=== PATIENT | female | born 1925 | race Caucasian/White ===

== ENCOUNTER → 2016-04-13 | Outpatient (CLI) | payer BC ==
[~2016-04-13] MED LIST: ACET-1256 PO; ASPI81TA28 GT; ATOR-22 GT; BISA10SU7 RE; CMD3 PO; CRS/10 PO; DOCUSATE LIQUID GT; FSMUNK; LIDOCAINE 2% TOP; LRT5 PO; METO25TA56 PO; MOME0.1O TOP; MOML GT; RBN1 GT; SENN-61 GT; SODIENE PR; WARF4TAB8 GT
--- NOTE | 2016-04-13 12:44 | MAMMOGRAPHY REPORT ---
BILATERAL DIGITAL SCREENING MAMMOGRAM WITH CAD: 04/13/2016 TECHNIQUE: Current study was also evaluated with a Computer Aided Detection (CAD) system. Bilatera l CC and MLO views were obtained. COMPARISON: Comparison is made to exam dated: 11/07/2009 mammogram - [facility]. BREAST COMPOSITION: There are scattered areas of fibroglandular density in both breasts. FINDINGS: No suspicious masses, calcifications, or areas of architectural distortion are noted in e ither breast. There has been no significant interval change compared to prior exams. Scattered bilat eral benign-appearing calcifications are not significantly changed. IMPRESSION: ACR BI-RADS CATEGORY 2: BENIGN There is no mammographic evidence of malignancy. A 1 year screening mammogram is recommended. The p atient will receive written notification of the results. Approximately 10% of breast cancers are not detected with mammography. A negative mammographic repor t should not delay biopsy if a clinically suggestive mass is present. Jojo White M.D. ah/:04/13/2016 12:05:45 Editor Index: Eleonora SALAZAR(Vonnie)(M), [facility] letter sent: Normal 1/2 BI-RADS Code: ACR BI-RADS Category 2: Benign
== END | disposition home or self-care (01) ==
LOC: C.MAMM 11:06
PROVIDERS: ATTEND Internal Medicine
DX: Z12.31 Encounter for screening mammogram for malignant neoplasm of breast (principal); R19.4 Change in bowel habit

== ENCOUNTER → 2016-04-13 | Outpatient (CLI) | payer BC | END | disposition home or self-care (01) | LOC: C.LABSPEC 14:31 | PROVIDERS: ATTEND Internal Medicine | DX: R19.4 Change in bowel habit (principal) ==

== ENCOUNTER → 2016-05-17 | Outpatient (CLI) | payer BC ==
[2016-05-17 18:46] LABS: BASO % 0.4 %; BASO ABS # 0.04 K/uL (0-0.2); COMPLETE YES; EOS % 2.1 %; HEMATOCRIT 43.6 % (37-47); IG% 0.2 %; LYMPH % 23.9 %; LYMPH ABS # 2.14 K/uL (1.2-3.4); MEAN CELL VOLUME 84.3 fL (80-100); MEAN CORPUSCULAR HEMOGLOBIN 27.9 pg (25-34); MEAN PLATELET VOLUME 10.9 fL (7.4-10.4); MONO % 6.7 %; NEUT % 66.7 %; PLATELET COUNT 268 K/uL (130-400); RED BLOOD COUNT 5.17 M/uL (4.2-5.4); WHITE BLOOD COUNT 8.95 K/uL (4.8-10.8)
== END | disposition home or self-care (01) ==
LOC: C.LABSPEC 17:48
PROVIDERS: ATTEND Internal Medicine
DX: M08.43 Pauciarticular juvenile rheumatoid arthritis, wrist (principal)

== ENCOUNTER → 2016-09-21 | Outpatient (CLI) | payer BC ==
[2016-09-21 17:47] LABS: BASO % 0.2 %; BASO ABS # 0.02 K/uL (0-0.2); COMPLETE YES; EOS % 0.2 %; HEMATOCRIT 46.9 % (37-47); IG% 0.3 %; LYMPH % 15.7 %; LYMPH ABS # 1.62 K/uL (1.2-3.4); MEAN CELL VOLUME 84.2 fL (80-100); MEAN CORPUSCULAR HEMOGLOBIN 27.5 pg (25-34); MEAN CORPUSCULAR HGB CONC 32.6 g/dl (32-36); MEAN PLATELET VOLUME 11.4 fL (7.4-10.4); NEUT % 80.6 %; PLATELET COUNT 290 K/uL (130-400); RED BLOOD COUNT 5.57 M/uL (4.2-5.4); WHITE BLOOD COUNT 10.32 K/uL (4.8-10.8)
[2016-09-21 17:53] LABS: ALT/SGPT 19 U/L (12-78); BLOOD UREA NITROGEN 25 mg/dl (7-18); BUN/CREATININE RATIO 22.9 (10-20); CALCIUM 9.1 mg/dl (8.5-10.1); CARBON DIOXIDE 27 mmol/L (21-32); CHLORIDE 104 mmol/L (98-107); GLUCOSE 138 mg/dl (70-99); POTASSIUM 3.7 mmol/L (3.5-5.1); SODIUM 139 mmol/L (136-145)
[2016-09-21 17:55] LABS: ALB/GLOB RATIO 1.1 (0.9-2); ALKALINE PHOSPHATASE 63 U/L (45-117); AST/SGOT 12 U/L (15-37)
== END | disposition home or self-care (01) ==
LOC: C.LABSPEC 16:51
PROVIDERS: ATTEND Internal Medicine
DX: E86.0 Dehydration (principal); R11.10 Vomiting, unspecified

== ENCOUNTER 2016-09-25 20:56 | Emergency (ER) | payer BC ==
[~2016-09-25] VITALS: Ht 157.5 cm; Wt 61.0 kg
[~2016-09-25 20:56] MED LIST changes: -ACET-1256 PO; -ASPI81TA28 GT; -ATOR-22 GT; -BISA10SU7 RE; -CRS/10 PO; -DOCUSATE LIQUID GT; -LIDOCAINE 2% TOP; -METO25TA56 PO; -MOME0.1O TOP; -MOML GT; -RBN1 GT; -SENN-61 GT; -SODIENE PR; -WARF4TAB8 GT
[2016-09-25 21:03] VITALS: TEMP 36.5; O2SAT 96; Ht 157.5 cm; Wt 61.0 kg
[2016-09-25] MEDS ORDERED: SODIUM CHLORIDE 0.9% 1000ML 1,000 ML IV SCH (21:07)
--- NOTE | 2016-09-25 21:18 | DIAGNOSTIC IMAGING REPORT ---
CT SCAN OF THE BRAIN WITHOUT IV CONTRAST CLINICAL HISTORY: Strokelike symptoms. COMPARISON STUDY: CT the brain dated 01/03/2011. TECHNIQUE: Unenhanced axial CT scan of the brain is performed from the vertex to the skull base. CT DOSE: 537.48 mGy.cm FINDINGS: Brain parenchyma: There are age-related involutional changes noting mild to moderate patchy subcortical and periventricular microangiopathic change. There is no hemorrhage, mass effect, or evidence of acute territorial ischemia by CT criteria. 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 Rossi-white matter is preserved. No extra-axial fluid collection is seen. Ventricles, sulci, cisterns: Prominent secondary to involutional change. Intracranial vasculature: There is atherosclerotic calcification of the cavernous carotid and vertebral arteries. Calvarium: Unremarkable. Sinuses and mastoids: The visualized paranasal sinuses are clear. The mastoid air cells are well pneumatized. Orbits: The bony orbits are grossly intact. IMPRESSION: There is no hemorrhage, mass effect, or evidence of acute territorial ischemia by CT criteria. Electronically signed by: Janes Turner M.D. 09/25/2016 9:17 PM Dictated Date/Time: 09/25/2016 9:15 PM
[2016-09-25] MEDS ORDERED: LABETALOL HCL IV 5 MG/ML 20ML IV STA ×2 (21:19→22:15)
[2016-09-25 21:24] LABS: BASO % 0.4 %; BASO ABS # 0.04 K/uL (0-0.2); COMPLETE YES; EOS % 1.5 %; HEMATOCRIT 46.8 % (37-47); IG% 0.2 %; LYMPH % 28.4 %; MEAN CELL VOLUME 84.6 fL (80-100); MEAN CORPUSCULAR HEMOGLOBIN 28.2 pg (25-34); MEAN CORPUSCULAR HGB CONC 33.3 g/dl (32-36); MONO % 4.7 %; NEUT % 64.8 %; PLATELET COUNT 262 K/uL (130-400); RED BLOOD COUNT 5.53 M/uL (4.2-5.4); WHITE BLOOD COUNT 9.85 K/uL (4.8-10.8)
[2016-09-25] MEDS ORDERED: CRS/10 PO (21:33)
[2016-09-25] MEDS ORDERED: MOME0.1O TOP (21:33)
[2016-09-25] MEDS ORDERED: METO25TA56 PO (21:33)
[2016-09-25] MEDS ORDERED: ONDANSETRON INJ 2 MG/ML 2 ML VIAL IV STA ×2 (21:34→22:14)
[2016-09-25] MEDS ORDERED: ONDANSETRON INJ 2 MG/ML 2 ML VIAL ONE (21:34)
[2016-09-25 21:39] LABS: ISTAT CREATININE 0.8 mg/dl (0.6-1.3); ISTAT HEMOGLOBIN 17.3 g/dl (12.0-16.0); ISTAT IONIZED CALCIUM 1.13 mmol/l (1.12-1.32)
[2016-09-25 21:40] LABS: BLOOD UREA NITROGEN 21 mg/dl (7-18); BUN/CREATININE RATIO 21.9 (10-20); CALCIUM 8.8 mg/dl (8.5-10.1); CARBON DIOXIDE 23 mmol/L (21-32); CHLORIDE 105 mmol/L (98-107); CREATININE 0.97 mg/dl (0.60-1.20); GLUCOSE 163 mg/dl (70-99); POTASSIUM 3.4 mmol/L (3.5-5.1); SODIUM 138 mmol/L (136-145)
[2016-09-25 21:45] LABS: URINE APPEARANCE CLEAR (CLEAR); URINE BILIRUBIN NEG (NEG); URINE COLOR YELLOW; URINE EPITHELIAL CELL AUTO 0-5 /lpf (0-5); URINE NITRITE NEG (NEG); URINE PH 7.5 (4.5-7.5); URINE SPECIFIC GRAVITY 1.012 (1.000-1.030); UROBILINOGEN NEG (NEG); ZZURINE CULT IF INDIC CATH NO
[2016-09-25 21:45] LABS: CKMB/CK RATIO 3.6 (0-3.0)
[2016-09-25 21:48] LABS: PARTIAL THROMBOPLASTIN RATIO 1.1; PROTHROMBIN TIME (PATIENT) 10.3 SECONDS (9.0-12.0)
[2016-09-25 22:06] LABS: MANUAL MICROSCOPIC REQUIRED? NO; REVIEW REQ? NO
[2016-09-25 22:07] LABS: SULFASALICYLIC ACID POS (NEG)
[2016-09-25] MEDS ORDERED: OPTIRAY 320 IV PRN (22:30)
[2016-09-25] MEDS ORDERED: METOCLOPRAMIDE HCL INJ 5 MG/ML 2 ML VIAL IV STA (23:00)
[2016-09-25] MEDS ORDERED: NiCARDipine IV 25 MG in SODIUM CHLORIDE 0.9% 250ML 240 ML IV STA (23:03)
--- NOTE | 2016-09-25 23:19 | DIAGNOSTIC IMAGING REPORT ---
CT ANGIOGRAM OF THE BRAIN; CT ANGIOGRAM OF THE NECK CLINICAL HISTORY: Strokelike symptoms. COMPARISON STUDY: Unenhanced CT of the brain performed the same day 09/25/2016. TECHNIQUE: Following the IV administration of 115 of Optiray 320, CT angiogram of the head and neck was performed from the aortic arch to the vertex. Images are reviewed in the axial, sagittal, and coronal planes. 3-D MIPS images are created and assessed. IV contrast was administered without complication. All measurements were calculated based on NASCET criteria. CT DOSE: 408.36 mGy.cm FINDINGS: Brain parenchyma: There are age-related involutional changes noting mild to moderate patchy subcortical and periventricular microangiopathic disease. There is no hemorrhage, mass effect, or evidence of acute territorial ischemia by CT criteria. There is no evidence of enhancing mass lesion on these angiogram phase images. The ventricles, sulci, and cisterns are prominent secondary to involutional change. Rossi-white matter differentiation is preserved. No extra-axial fluid collection is seen. Thoracic aorta: There is mild atherosclerotic calcification of the partially imaged thoracic aorta. The aortic arch demonstrates standard 3-vessel anatomy. Right carotid arterial system: The right common carotid artery is widely patent. There is less than 50% narrowing at the origin of the right internal carotid artery. The remainder of the right internal carotid artery as well as the external carotid artery are widely patent. Atherosclerotic calcification is noted in the carotid bulb. Left carotid arterial system: The left common carotid artery is widely patent, as is the left external carotid artery. There is approximately 50% stenosis of the origin of the left internal carotid artery seen on axial image #177. The remainder of the internal carotid artery is widely patent. Atherosclerotic plaque is noted in the carotid bulb. Vertebral arteries: The vertebral arteries are codominant. The right vertebral artery is widely patent. 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 The proximal left vertebral artery is widely patent. There is diminished flow seen within the mid to distal portions Subclavian arteries: Widely patent bilaterally. Intracranial vasculature: The internal carotid arteries are patent at the skull base, as are the anterior and middle cerebral arteries bilaterally. The right vertebral artery and the basilar artery are widely patent, as are the posterior cerebral arteries. 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 The cerebellar vessels appear patent. There is no aneurysm or high-grade stenosis identified throughout the remainder of the intracranial circulation. Jugular veins: Widely patent bilaterally. Dural sinuses: Patent. Lung apices: Intralobular septal thickening is seen at the lung apices. Partially visualized upper lobe lung parenchyma is otherwise clear. Soft tissues: The visualized pharyngeal soft tissues are normal in appearance noting angiographic phase technique. The oropharyngeal airway appears widely patent. The salivary and thyroid glands are normal in appearance. No cervical lymphadenopathy is seen. Skeletal structures: The skeletal structures are osteopenic. The calvarium appears intact. The cervical spine appears maintained noting multilevel spondylosis. Large periapical lucencies are identified involving several mandibular teeth. Orbits: The bony orbits are intact. Orbital contents are normal as imaged noting bilateral ocular lens implants. Sinuses and mastoids: Trace mucosal thickening is seen within the maxillary antra. The remaining paranasal sinuses are clear. The mastoid air cells are well pneumatized. IMPRESSION: 1. There is no hemorrhage, mass effect, or evidence of acute territorial ischemia by CT criteria. 2. 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 The right vertebral artery and the basilar artery are widely patent. 3. The remaining intracranial vessels are patent. No aneurysm or focal vessel cut off is seen throughout the remainder of the intracranial circulation. 4. There is less than 50% narrowing at the origin of the right internal carotid artery. The remainder of the right carotid arterial system is widely patent. 5. There is approximately 50% stenosis in the proximal left internal carotid artery. The remainder of the left carotid arterial system is widely patent. 6. Intralobular septal thickening is present in the upper lobes. This suggests congestive failure. Clinical correlation will be required. 7. Large periapical lucencies are identified involving several mandibular teeth. Follow-up with dentistry is recommended when the patient is clinically able. Electronically signed by: Janes Turner M.D. 09/25/2016 11:18 PM Dictated Date/Time: 09/25/2016 10:58 PM
--- NOTE | 2016-09-25 23:21 | DIAGNOSTIC IMAGING REPORT ---
SINGLE VIEW CHEST CLINICAL HISTORY: Strokelike symptoms. Hypoxia. Cough. FINDINGS: An AP, portable, upright chest radiograph is compared to study dated 01/09/2011. The examination is degraded by portable technique and patient rotation. The patient is status post midline sternotomy. The heart is enlarged and there is atherosclerotic calcification of the thoracic aorta. There is pulmonary vessel congestion with mild interstitial edema. No large pleural effusion is identified. There is no airspace consolidation typical for pneumonia. No pneumothorax is seen. The skeletal structures are osteopenic. The bony thorax is grossly intact. IMPRESSION: 1. Cardiomegaly with evidence of congestive failure and mild interstitial edema. 2. No focal airspace consolidation or large pleural effusion is identified. Electronically signed by: Janes Turner M.D. 09/25/2016 11:19 PM Dictated Date/Time: 09/25/2016 11:18 PM
[2016-09-26 00:15] VITALS: PULSE 88; O2SAT 98
[2016-09-26] MEDS ORDERED: HEPARIN IV LOW DOSE NO BOLUS STA (01:54)
[2016-09-26] MEDS ORDERED: HEPARIN 25000 UNIT/500 ML D5W ONE (02:00)
--- NOTE | 2016-09-26 03:32 | EMERGENCY ROOM VISIT NOTE ---
History Report prepared by Godwin: Trudy Vital Under the Supervision of: Dr. Jan Wolfe M.D. First contact with patient: 20:58 Stated Complaint: STROKE ALERT History of Present Illness The patient is an 89 year old female who presents to the Emergency Room with complaints of persistent stroke symptoms that began around 1800 this evening. She currently rates her discomfort as a 10/10 in severity. The patient reports that she has been experiencing a left-sided headache and facial pain. EMS reports that the patient has been experiencing left sided weakness. EMS notes that the patient cannot sit up and falls to the left side. EMS notes that the patient's stated that the patient is typically much quicker to respond. She was given aspirin at home. The patient denies any chest pain or breathing difficulty. She does have some mild nausea. She denies any right- sided weakness. No trauma reported. The history is somewhat limited secondary to the patient's medical acuity and neurologic issues. Source of History: patient, EMS Onset: 1800 Position: other (global) Symptom Intensity: 10/10 Quality: other (stroke symptoms) Timing: other (persistent) Associated Symptoms: + headache, + weakness (left leg, left arm) Note: Associated Symptoms: left facial droop. Review of Systems See HPI for pertinent positives and negatives. A total of ten systems were reviewed and were otherwise negative. 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 Social History Smokeless Tobacco Use: No Alcohol Use: occasionally Marital Status: Housing Status: lives with significant other Current/Historical Medications Scheduled Aspirin (Aspirin Ec), 81 MG PO DAILY Metoprolol Tartrate (Lopressor) (Lopressor), 25 MG PO DAILY Mometasone Furoate (Elocon), 1 APPLN TOP DAILY Rosuvastatin Calcium (Crestor), 10 MG PO DAILY Allergies Coded Allergies: Simvastatin (Verified Allergy, Mild, RASH, 01/03/11) Physical Exam Vital Signs Date Time Temp Pulse Resp B/P (MAP) Pulse Ox O2 Delivery O2 Flow Rate FiO2 09/26/16 02:56 81 16 135/65 96 BiPAP 40 09/26/16 01:30 88 20 142/75 96 BiPAP 40 09/26/16 01:16 89 09/26/16 00:49 89 20 157/85 96 BiPAP 40 09/26/16 00:26 87 16 148/82 98 BiPAP 40 09/26/16 00:15 88 98 40 09/26/16 00:02 91 20 138/84 97 Mask 6.0 09/25/16 23:48 84 20 140/91 99 Mask 10.0 09/25/16 23:38 78 22 188/103 93 Mask 15.0 09/25/16 22:56 81 22 192/96 91 Mask 10.0 09/25/16 22:16 205/115 09/25/16 22:12 68 20 92 Mask 6.0 09/25/16 22:03 69 20 201/120 90 Nasal Cannula 4.0 09/25/16 22:02 201/120 09/25/16 21:57 69 14 88 09/25/16 21:48 140/115 09/25/16 21:42 78 14 09/25/16 21:37 76 18 217/115 92 Nasal Cannula 2.0 09/25/16 21:31 80 16 197/90 92 Nasal Cannula 2.0 09/25/16 21:26 80 16 97 Nasal Cannula 2.0 09/25/16 21:19 80 09/25/16 21:17 76 18 214/105 93 Nasal Cannula 2.0 09/25/16 21:03 36.5 83 18 223/127 97 Nasal Cannula 2.0 09/25/16 21:03 96 Nasal Cannula 2.0 Physical Exam GENERAL: Awake, alert, well-appearing, in no distress HENT: Normocephalic, atraumatic. Oropharynx unremarkable. EYES: Normal conjunctiva. Sclera non-icteric. PERRLA. EOMI however moderate nystagmus noted laterally. NECK: Supple. No nuchal rigidity. FROM. No JVD. RESPIRATORY: Clear to auscultation. CARDIAC: Regular rate, normal rhythm. Extremities warm and well perfused. Pulses equal. ABDOMEN: Soft, non-distended. No tenderness to palpation. No rebound or guarding. No masses. RECTAL: Deferred. MUSCULOSKELETAL: Chest examination reveals no tenderness. The back is symmetrical on inspection without obvious abnormality. There is no CVA tenderness to palpation. No joint edema. LOWER EXTREMITIES: Calves are equal size bilaterally and non-tender. No edema. No discoloration. NEURO: Normal sensorium. Left arm 4.5 out of 5 and left leg 4 out of 5 weakness. Left facial droop. Slow to answer questions, speech is somewhat slurred. No pronator drift. SKIN: No rash or jaundice noted. Medical Decision & Procedures ER Provider Diagnostic Interpretation: Radiology results as stated below per my review and radiologist interpretation: CT SCAN OF THE BRAIN WITHOUT IV CONTRAST CLINICAL HISTORY: Strokelike symptoms. COMPARISON STUDY: CT the brain dated 01/03/2011. TECHNIQUE: Unenhanced axial CT scan of the brain is performed from the vertex to the skull base. CT DOSE: 537.48 mGy.cm FINDINGS: Brain parenchyma: There are age-related involutional changes noting mild to moderate patchy subcortical and periventricular microangiopathic change. There is no hemorrhage, mass effect, or evidence of acute territorial ischemia by CT criteria. 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 Rossi-white matter is preserved. No extra-axial fluid collection is seen. Ventricles, sulci, cisterns: Prominent secondary to involutional change. Intracranial vasculature: There is atherosclerotic calcification of the cavernous carotid and vertebral arteries. Calvarium: Unremarkable. Sinuses and mastoids: The visualized paranasal sinuses are clear. The mastoid air cells are well pneumatized. Orbits: The bony orbits are grossly intact. IMPRESSION: There is no hemorrhage, mass effect, or evidence of acute territorial ischemia by CT criteria. Electronically signed by: Janes Turner M.D. 09/25/2016 9:17 PM Dictated Date/Time: 09/25/2016 9:[address] ANGIOGRAM OF THE BRAIN; CT ANGIOGRAM OF THE NECK CLINICAL HISTORY: Strokelike symptoms. COMPARISON STUDY: Unenhanced CT of the brain performed the same day 09/25/2016. TECHNIQUE: Following the IV administration of 115 of Optiray 320, CT angiogram of the head and neck was performed from the aortic arch to the vertex. Images are reviewed in the axial, sagittal, and coronal planes. 3-D MIPS images are created and assessed. IV contrast was administered without complication. All measurements were calculated based on NASCET criteria. CT DOSE: 408.36 mGy.cm FINDINGS: Brain parenchyma: There are age-related involutional changes noting mild to moderate patchy subcortical and periventricular microangiopathic disease. There is no hemorrhage, mass effect, or evidence of acute territorial ischemia by CT criteria. There is no evidence of enhancing mass lesion on these angiogram phase images. The ventricles, sulci, and cisterns are prominent secondary to involutional change. Rossi-white matter differentiation is preserved. No extra-axial fluid collection is seen. Thoracic aorta: There is mild atherosclerotic calcification of the partially imaged thoracic aorta. The aortic arch demonstrates standard 3-vessel anatomy. Right carotid arterial system: The right common carotid artery is widely patent. There is less than 50% narrowing at the origin of the right internal carotid artery. The remainder of the right internal carotid artery as well as the external carotid artery are widely patent. Atherosclerotic calcification is noted in the carotid bulb. Left carotid arterial system: The left common carotid artery is widely patent, as is the left external carotid artery. There is approximately 50% stenosis of the origin of the left internal carotid artery seen on axial image #177. The remainder of the internal carotid artery is widely patent. Atherosclerotic plaque is noted in the carotid bulb. Vertebral arteries: The vertebral arteries are codominant. The right vertebral artery is widely patent. 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 The proximal left vertebral artery is widely patent. There is diminished flow seen within the mid to distal portions Subclavian arteries: Widely patent bilaterally. Intracranial vasculature: The internal carotid arteries are patent at the skull base, as are the anterior and middle cerebral arteries bilaterally. The right vertebral artery and the basilar artery are widely patent, as are the posterior cerebral arteries. 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 The cerebellar vessels appear patent. There is no aneurysm or high-grade stenosis identified throughout the remainder of the intracranial circulation. Jugular veins: Widely patent bilaterally. Dural sinuses: Patent. Lung apices: Intralobular septal thickening is seen at the lung apices. Partially visualized upper lobe lung parenchyma is otherwise clear. Soft tissues: The visualized pharyngeal soft tissues are normal in appearance noting angiographic phase technique. The oropharyngeal airway appears widely patent. The salivary and thyroid glands are normal in appearance. No cervical lymphadenopathy is seen. Skeletal structures: The skeletal structures are osteopenic. The calvarium appears intact. The cervical spine appears maintained noting multilevel spondylosis. Large periapical lucencies are identified involving several mandibular teeth. Orbits: The bony orbits are intact. Orbital contents are normal as imaged noting bilateral ocular lens implants. Sinuses and mastoids: Trace mucosal thickening is seen within the maxillary antra. The remaining paranasal sinuses are clear. The mastoid air cells are well pneumatized. IMPRESSION: 1. There is no hemorrhage, mass effect, or evidence of acute territorial ischemia by CT criteria. 2. 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 The right vertebral artery and the basilar artery are widely patent. 3. The remaining intracranial vessels are patent. No aneurysm or focal vessel cut off is seen throughout the remainder of the intracranial circulation. 4. There is less than 50% narrowing at the origin of the right internal carotid artery. The remainder of the right carotid arterial system is widely patent. 5. There is approximately 50% stenosis in the proximal left internal carotid artery. The remainder of the left carotid arterial system is widely patent. 6. Intralobular septal thickening is present in the upper lobes. This suggests congestive failure. Clinical correlation will be required. 7. Large periapical lucencies are identified involving several mandibular teeth. Follow-up with dentistry is recommended when the patient is clinically able. Electronically signed by: Janes Turner M.D. 09/25/2016 11:18 PM Dictated Date/Time: 09/25/2016 10:[address] ANGIOGRAM OF THE BRAIN; CT ANGIOGRAM OF THE NECK CLINICAL HISTORY: Strokelike symptoms. COMPARISON STUDY: Unenhanced CT of the brain performed the same day 09/25/2016. TECHNIQUE: Following the IV administration of 115 of Optiray 320, CT angiogram of the head and neck was performed from the aortic arch to the vertex. Images are reviewed in the axial, sagittal, and coronal planes. 3-D MIPS images are created and assessed. IV contrast was administered without complication. All measurements were calculated based on NASCET criteria. CT DOSE: 408.36 mGy.cm FINDINGS: Brain parenchyma: There are age-related involutional changes noting mild to moderate patchy subcortical and periventricular microangiopathic disease. There is no hemorrhage, mass effect, or evidence of acute territorial ischemia by CT criteria. There is no evidence of enhancing mass lesion on these angiogram phase images. The ventricles, sulci, and cisterns are prominent secondary to involutional change. Rossi-white matter differentiation is preserved. No extra-axial fluid collection is seen. Thoracic aorta: There is mild atherosclerotic calcification of the partially imaged thoracic aorta. The aortic arch demonstrates standard 3-vessel anatomy. Right carotid arterial system: The right common carotid artery is widely patent. There is less than 50% narrowing at the origin of the right internal carotid artery. The remainder of the right internal carotid artery as well as the external carotid artery are widely patent. Atherosclerotic calcification is noted in the carotid bulb. Left carotid arterial system: The left common carotid artery is widely patent, as is the left external carotid artery. There is approximately 50% stenosis of the origin of the left internal carotid artery seen on axial image #177. The remainder of the internal carotid artery is widely patent. Atherosclerotic plaque is noted in the carotid bulb. Vertebral arteries: The vertebral arteries are codominant. The right vertebral artery is widely patent. 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 The proximal left vertebral artery is widely patent. There is diminished flow seen within the mid to distal portions Subclavian arteries: Widely patent bilaterally. Intracranial vasculature: The internal carotid arteries are patent at the skull base, as are the anterior and middle cerebral arteries bilaterally. The right vertebral artery and the basilar artery are widely patent, as are the posterior cerebral arteries. 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 The cerebellar vessels appear patent. There is no aneurysm or high-grade stenosis identified throughout the remainder of the intracranial circulation. Jugular veins: Widely patent bilaterally. Dural sinuses: Patent. Lung apices: Intralobular septal thickening is seen at the lung apices. Partially visualized upper lobe lung parenchyma is otherwise clear. Soft tissues: The visualized pharyngeal soft tissues are normal in appearance noting angiographic phase technique. The oropharyngeal airway appears widely patent. The salivary and thyroid glands are normal in appearance. No cervical lymphadenopathy is seen. Skeletal structures: The skeletal structures are osteopenic. The calvarium appears intact. The cervical spine appears maintained noting multilevel spondylosis. Large periapical lucencies are identified involving several mandibular teeth. Orbits: The bony orbits are intact. Orbital contents are normal as imaged noting bilateral ocular lens implants. Sinuses and mastoids: Trace mucosal thickening is seen within the maxillary antra. The remaining paranasal sinuses are clear. The mastoid air cells are well pneumatized. IMPRESSION: 1. There is no hemorrhage, mass effect, or evidence of acute territorial ischemia by CT criteria. 2. 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 The right vertebral artery and the basilar artery are widely patent. 3. The remaining intracranial vessels are patent. No aneurysm or focal vessel cut off is seen throughout the remainder of the intracranial circulation. 4. There is less than 50% narrowing at the origin of the right internal carotid artery. The remainder of the right carotid arterial system is widely patent. 5. There is approximately 50% stenosis in the proximal left internal carotid artery. The remainder of the left carotid arterial system is widely patent. 6. Intralobular septal thickening is present in the upper lobes. This suggests congestive failure. Clinical correlation will be required. 7. Large periapical lucencies are identified involving several mandibular teeth. Follow-up with dentistry is recommended when the patient is clinically able. Electronically signed by: Janes Turner M.D. 09/25/2016 11:18 PM Dictated Date/Time: 09/25/2016 10:58 PM SINGLE VIEW CHEST CLINICAL HISTORY: Strokelike symptoms. Hypoxia. Cough. FINDINGS: An AP, portable, upright chest radiograph is compared to study dated 01/09/2011. The examination is degraded by portable technique and patient rotation. The patient is status post midline sternotomy. The heart is enlarged and there is atherosclerotic calcification of the thoracic aorta. There is pulmonary vessel congestion with mild interstitial edema. No large pleural effusion is identified. There is no airspace consolidation typical for pneumonia. No pneumothorax is seen. The skeletal structures are osteopenic. The bony thorax is grossly intact. IMPRESSION: 1. Cardiomegaly with evidence of congestive failure and mild interstitial edema. 2. No focal airspace consolidation or large pleural effusion is identified. Electronically signed by: Janes Turner M.D. 09/25/2016 11:19 PM Dictated Date/Time: 09/25/2016 11:18 PM Laboratory Results 09/25/16 20:40 Red Blood Count 5.53, Mean Corpuscular Volume 84.6, Mean Corpuscular Hemoglobin 28.2, Mean Corpuscular Hemoglobin Concent 33.3, Mean Platelet Volume 11.0, Neutrophils (%) (Auto) 64.8, Lymphocytes (%) (Auto) 28.4, Monocytes (%) (Auto) 4.7, Eosinophils (%) (Auto) 1.5, Basophils (%) (Auto) 0.4, Neutrophils # (Auto) 6.38, Lymphocytes # (Auto) 2.80, Monocytes # (Auto) 0.46, Eosinophils # (Auto) 0.15, Basophils # (Auto) 0.04 09/25/16 20:40 Test 09/25/16 00:00 09/25/16 20:40 09/25/16 21:17 09/25/16 21:25 Urine Color YELLOW Urine Appearance CLEAR (CLEAR) Urine pH 7.5 (4.5-7.5) Urine Specific [place] 1.012 (1.000-1.030) Urine Protein 1+ (NEG) Urine Glucose (UA) TRACE (NEG) Urine Ketones NEG (NEG) Urine Occult Blood NEG (NEG) Urine Nitrite NEG (NEG) Urine Bilirubin NEG (NEG) Urine Urobilinogen NEG (NEG) Urine Leukocyte Esterase NEG (NEG) Urine WBC (Auto) 0 /hpf (0-5) Urine RBC (Auto) 0-4 /hpf (0-4) Urine Hyaline Casts (Auto) 0 /lpf (0-5) Urine Epithelial Cells (Auto) 0-5 /lpf (0-5) Urine Bacteria (Auto) NEG (NEG) White Blood Count 9.85 K/uL (4.8-10.8) Red Blood Count 5.53 M/uL (4.2-5.4) Hemoglobin 15.6 g/dL (12.0-16.0) Hematocrit 46.8 % (37-47) Mean Corpuscular Volume 84.6 fL (80-100) Mean Corpuscular Hemoglobin 28.2 pg (25-34) Mean Corpuscular Hemoglobin Concent 33.3 g/dl (32-36) Platelet Count 262 K/uL (130-400) Mean Platelet Volume 11.0 fL (7.4-10.4) Neutrophils (%) (Auto) 64.8 % Lymphocytes (%) (Auto) 28.4 % Monocytes (%) (Auto) 4.7 % Eosinophils (%) (Auto) 1.5 % Basophils (%) (Auto) 0.4 % Neutrophils # (Auto) 6.38 K/uL (1.4-6.5) Lymphocytes # (Auto) 2.80 K/uL (1.2-3.4) Monocytes # (Auto) 0.46 K/uL (0.11-0.59) Eosinophils # (Auto) 0.15 K/uL (0-0.5) Basophils # (Auto) 0.04 K/uL (0-0.2) RDW Standard Deviation 41.5 fL (36.4-46.3) RDW Coefficient of Variation 13.4 % (11.5-14.5) Immature Granulocyte % (Auto) 0.2 % Immature Granulocyte # (Auto) 0.02 K/uL (0.00-0.02) Prothrombin Time 10.3 SECONDS (9.0-12.0) Prothromb Time International Ratio 1.0 (0.9-1.1) Activated Partial Thromboplast Time 28.1 SECONDS (21.0-31.0) Partial Thromboplastin Ratio 1.1 Est Creatinine Clear Calc Drug Dose 33.8 ml/min Estimated GFR () 60.0 Estimated GFR (Non- 51.8 BUN/Creatinine Ratio 21.9 (10-20) Calcium Level 8.8 mg/dl (8.5-10.1) Total Creatine Kinase 64 U/L (26-192) Creatine Kinase MB 2.3 ng/ml (0.5-3.6) Creatine Kinase MB Ratio 3.6 (0-3.0) Troponin I < 0.015 ng/ml (0-0.045) Bedside Glucose 152 mg/dl (70-90) Bedside Hemoglobin 17.3 g/dl (12.0-16.0) Bedside Hematocrit 51 % (37-47) Bedside Sodium 139 mEq/L (135-144) Bedside Potassium 3.6 mEq/L (3.3-5.0) Bedside Chloride 102 mEq/L (101-112) Bedside Total CO2 23 mEq/l (24-31) Anion Gap 19.0 mmol/L (16-25) Bedside Blood Urea Nitrogen 22 mg/dl (7-18) Bedside Creatinine 0.8 mg/dl (0.6-1.3) Bedside Glucose (other) 181 mg/dl (70-99) Bedside Ionized Calcium (Azucena) 1.13 mmol/l (1.12-1.32) Laboratory results reviewed by me Medications Administered Medications (Trade) Dose Ordered Sig/Francois Route Start Time Stop Time Status Last Admin Dose Admin Sodium Chloride 1,000 ml @ 50 mls/hr Q20H IV 09/25/16 21:07 10/25/16 21:06 09/25/16 21:38 50 MLS/HR Labetalol HCl (Normodyne IV) 10 mg NOW STAT IV 09/25/16 21:19 09/25/16 21:20 DC 09/25/16 21:32 10 MG Ondansetron HCl (Zofran Inj) 4 mg NOW STAT IV 09/25/16 21:34 09/25/16 21:35 DC 09/25/16 21:38 4 MG Ondansetron HCl (Zofran Inj) 4 mg NOW STAT IV 09/25/16 22:14 09/25/16 22:15 DC 09/25/16 22:19 4 MG Labetalol HCl (Normodyne IV) 10 mg NOW STAT IV 09/25/16 22:15 09/25/16 22:16 DC 09/25/16 22:21 10 MG Metoclopramide HCl (Reglan Inj) 5 mg NOW STAT IV 09/25/16 23:00 09/25/16 23:01 DC 09/25/16 23:09 5 MG Nicardipine HCl 25 mg/Sodium Chloride 250 ml @ 0 mls/hr Q0M STAT IV 09/25/16 23:03 09/25/16 23:04 DC 09/25/16 23:27 5 MLS/HR Heparin Sodium/ Dextrose (Heparin 25,000 Unit/500ml D5W) 25,000 unit STK-MED ONCE .ROUTE 09/26/16 02:00 09/26/16 02:02 DC 09/26/16 02:15 25,000 UNIT ECG Indication: other (stroke symptoms) Rate (beats per minute): 79 Rhythm: sinus rhythm Findings: PVC, Q waves (inferior and anterior), no acute ischemic change ED Course 2055: The patient arrived to the emergency department. 2057: The patient was evaluated in room B1. A complete history and physical exam was performed. 2101: The patient was taken to CT scan at this time. 2106: Ordered Sodium Chloride 1000 ml @ 50 mls/hr IV. 2118: Ordered Labetalol HCl 10 mg IV. 2123: I discussed the patients case with Dr. Candelario, [facility]. He feels that the patient is out of the window at this time, but states that he will evaluate her over Tele[facility]roke. 2133: Ordered Zofran Inj 4 mg IV. 2148: Per nursing staff, the patients states that he gave the patient 324 mg of aspirin when her symptoms began. 2211: I discussed the patients case with [facility]. He states that the patients blood pressure should be controlled. He requests that the patient has a CTA and if it is positive call him back, but if negative, he can be evaluated here for further treatment. 5: Ordered Zofran Inj 4 mg IV, Labetalol HCl 10 mg IV. 2215: I updated the patients at this time. 2300: I placed the patient on a non-rebreather at this time. Ordered Reglan Inj 5 mg IV. 2303: Ordered Nicardipine HCl 25 mg/Sodium Chloride 250 ml @ 0 mls/hr protocol IV. 2352: I ordered BIPAP for the patient at this time. 2356: I reevaluated the patient and she is resting. 0004: I discussed the patients case with [facility]. He said that the patient can be evaluated here or they will accept the patient to their facility for transfer. He states whatever the patients family is comfortable with. 0010: I reevaluated the patient and she is resting. The patients had left. Nursing staff will attempt to contact him for a decision. 0013: I spoke to the patients at this time. He states that he is in agreement with whatever Dr. Frost thinks. 0029: I discussed the patients case with Dr. Frost, Internal Medicine. He states that the patient should go to a stroke center. 0034: I reevaluated the patient and discussed the treatment plan. She states that she would like to be transferred to [facility] instead of [facility]. 0043: I spoke to the patients again and I inform him that the patient would like to go to [facility]. 0048: I reevaluated the patient and she is going to figure out what insurance she has so we can find what facility to transfer her to. 0101: Case management confirmed that the patient has [facility] insurance. 0117: I called to have the patient transferred to [facility] for further evaluation and care. 0128: I discussed the patients case with Dr. Durant, Neurology. He states that he will talk to the interventionalist and call back. 0151: I spoke to Dr. Meyer, Neurology again and he states that he spoke to the interventionalist. He states that no bolus should be started, but start on Heparin. He states that [facility] will come to take the patient to [facility] for further evaluation and treatment. 0152: I reevaluated the patient and she is resting comfortably. 0154: Ordered Heparin Sodium Dextrose 1 ea NA. 0215: The patient is resting comfortably. Hemodynamically stable. Awaiting [facility]. 0235: G[place] reported [facility] is on their way. 0310: [facility] arrived and the flight crew was briefed on the patient's situation. She is reassessed and is hemodynamically stable. Her blood pressure was 138/66 therefore the nicardipine drip was stopped. The patient is being prepped for transfer to [facility]. Medical Decision Medication Reconciliation: I attest that I have personally reviewed the patient' s current medication list Blood pressure screening: Patient was found to have an elevated blood pressure and was referred to their primary doctor for recheck and further treatment. Triage Nursing notes reviewed. The patient's presentation and history were concerning for strokelike symptoms. Etiologies such as CVA, hypertensive emergency, metabolic, infection, hypo/ hyperglycemia, electrolyte abnormalities, cardiac sources, intracerebral event, toxicologic, neurologic, as well as others were entertained. A stroke alert was initiated. The patient was markedly hypertensive. She had strokelike findings. She was taken emergently to CT imaging. I did place a consultation with [facility]. The patient's CT scan did not reveal any significant findings. She was brought back to the emergency department. IV labetalol was administered twice for blood pressure control. The patient was very nauseated and vomited. She received Zofran 2 and Reglan 1. She had gentle saline hydration given. Her saturations were mildly diminished. She was having some breathing difficulty and chest x-ray shows some CHF. This seemed to be most consistent with a hypertensive emergency and CVA. I did start the patient on BiPAP. She did very well with this. [facility] recommended a CTA. The patient was started on nicardipine for her persistent hypertension. She underwent a CT angiogram and this was concerning for a clot within the left vertebral artery. On reassessment the patient did have improvement of her weakness. I did discuss this with the patient and her . [facility] did offer for the patient to be transferred there. I discussed this with the patient and her . They asked that I discussed this with her primary physician and I did so. The primary physician, Dr. Nba Frost and did feel that following the neurologist recommendation would be most prudent given the delicate nature of this type of problem. The patient then noted she would not like to be transferred to [facility] as she has had a bad experience there in the past. She wished to be transferred to [facility]. She and her were somewhat confused initially about her insurance coverage. I did discuss this with them and have case management and registration get involved. We then contacted [facility]. The case was discussed. [facility] discussed the patient' s issues with the stroke interventionalist and it was recommended to start the patient on IV heparin and transfer her emergently. They did initiate [facility]. The patient was reassessed multiple times. Prior to transfer her blood pressure did drop. She was resting comfortably. Neurologically she was doing better. She had the nicardipine held and heparin was continued. I did inform the flight crew. The patient was transferred to [facility] for further care. Consults Time Called: [phone] Consulting Physician: Katharina [facility] Returned Call: [phone] I discussed the patients case with Katharina Moreno Stroke Neu[facility]. He feels that the patient is out of the window at this time, but states that he will evaluate her over [facility]. Additional Consults: Time Called: [phone] Consulted Physician: Katharina Moreno Stroke Neurology Returned Call: [phone] Additional Comments: I discussed the patients case with Katharina [facility]no [facility] Neu[facility]. He said that the patient can be evaluated here or they will accept the patient to their facility for transfer. He states whatever the patients family is comfortable with. Time Called: 15 Consulted Physician: Dr. Frost, Internal Medicine Returned Call: [phone] Impression Primary Impression: Acute CVA (cerebrovascular accident) Additional Impression: Hypertensive emergency Critical Care I have personally spent greater than 120 minutes of critical care time in the direct management of this patient. This includes bedside care, interpretation of diagnostic studies, and testing, discussion with consultants, patient, and family members, and other required patient management activities. This 120 minutes is in excess of all separately billable procedures. Scribe Attestation The scribe's documentation has been prepared under my direction and personally reviewed by me in its entirety. I confirm that the note above accurately reflects all work, treatment, procedures, and medical decision making performed by me. Departure Information Dispostion Transfer Acute Care Facility Referrals Nba Forbes M.D. (PCP) Stroke History Time Last Known Well 1800 Stroke t-PA Criteria Reviewed Does NOT meet criteria for t-PA (out of window for treatment) Reason t-PA Not Given Treatment not indicated Problem Qualifiers
[2016-09-26 03:42] VITALS: BP 139/82; PULSE 89; O2SAT 95
== END 2016-09-26 03:43 | disposition short-term general hospital (02) ==
LOC: EDBD 20:56 → C.EDB 20:57
DX: I63.9 Cerebral infarction, unspecified (principal); G81.94 Hemiplegia, unspecified affecting left nondominant side; R29.810 Facial weakness; R47.81 Slurred speech; I10 Essential (primary) hypertension; I48.91 Unspecified atrial fibrillation; I48.92 Unspecified atrial flutter; E78.00 Pure hypercholesterolemia, unspecified; Z98.49 Cataract extraction status, unspecified eye; Z95.1 Presence of aortocoronary bypass graft; Z96.649 Presence of unspecified artificial hip joint; Z79.82 Long term (current) use of aspirin; Z79.899 Other long term (current) drug therapy

== ENCOUNTER → 2016-10-15 | Outpatient (CLI) | payer OTHER, BC ==
[~2016-10-15] MED LIST changes: +ACET-1256 PO; +ASPI81TA28 GT; +ATOR-22 GT; +BISA10SU7 RE; -CMD3 PO; +CRS/10 PO; +DOCUSATE LIQUID GT; -FSMUNK; +LIDOCAINE 2% TOP; -LRT5 PO; +METO25TA56 PO; +MOME0.1O TOP; +MOML GT; +RBN1 GT; +SENN-61 GT; +SODIENE PR; +WARF4TAB8 GT
--- NOTE | 2016-10-15 12:24 | DIAGNOSTIC IMAGING REPORT ---
VIDEO SWALLOW CLINICAL HISTORY: 89-year-old female with history of aspiration pneumonia. TECHNIQUE: Video fluoroscopic evaluation of swallowing was performed in the AP and lateral projections by the speech pathology staff. The patient is fed nectar-thick and thin liquid barium, a barium coated wafer, and barium pudding. COMPARISON: None. FINDINGS: There is normal hyoid excursion and epiglottic deflection. Penetration and intermittent aspiration of thin liquids with a spontaneous cough. Penetration without aspiration of nectar thick liquids. Residual noted in the vallecula and piriform sinuses with pudding, which cleared after multiple swallows. Fluoroscopy dosage (mGy): Not available. Fluoroscopy time: 3.7 minutes. Number of fluoroscopic spot images: 0. IMPRESSION: 1. Penetration and intermittent aspiration of thin liquids with penetration of nectar thick liquids. 2. Please see the speech pathologist report for detailed findings and recommendations. Electronically signed by: Juan Carlos Cruz M.D. 10/15/2016 12:23 PM Dictated Date/Time: 10/15/2016 12:19 PM
--- NOTE | 2016-10-15 14:58 | SWALLOWING EVALUATION ---
HISTORY: This 89 year old woman, from [facility], was referred for a video swallow study at [facility] in order to rule out aspiration and identify the safest consistencies for optimal oral intake. 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 Currently, the patient is utilizing a PEG tube for meeting her nutrition and hydration needs. Per speech therapy at [facility], the patient has been participating in VitalStim therapy and had been reportedly tolerating therapeutic trials of moist purees, nectar thick liquids, and honey thick liquids. PROCEDURE: The patient was seen in the Radiology Department of [facility] for the VFSS. Cursory examination of the oral cavity revealed natural dentition. Movement of the articulators was impaired as evidenced by reduced strength and ROM of the left cheek and lips. Mild to moderate dysarthria of speech was also apparent. The patient was seated in a wheelchair and was viewed in both the Anterior-Posterior (A-P) and Lateral planes. Volitional phonation exercises completed in the A-P plane revealed bilateral vocal fold movement (however there was mildly reduced adduction of the left vocal fold) and vocal intensity was judged to be low. Vocal quality was raspy. In the lateral plane, the patient was given the following boluses: 1 tsp. thin liquid barium x 2, single swallow thin liquid barium self-presented from a cup x2, sequential swallows of thin liquid barium self-presented from a straw, 1 tsp. nectar-thick liquid barium, single swallow nectar-thick liquid barium self-presented from a cup x2 (one with a chin tuck), 1 tsp. barium pudding, and 1 club cracker coated in barium pudding. The patient was then repositioned into the A-P plane and given the following boluses: 1 tsp. nectar thick barium and 1 tsp. barium pudding. RESULTS: Oral Stage: Lip closure was adequate. The patient was able to maintain a cohesive liquid bolus upon command without lateral or posterior escape. Mastication was noted to be slow as was lingual motion for bolus transport. There was retention lining the tongue and palate after the swallow. The initiation of the pharyngeal swallow was delayed and triggered when the bolus head reached pyriforms. Pharyngeal Stage: Soft palate elevation was complete. Laryngeal elevation revealed partial superior movement of the thyroid cartilage and partial approximation of the arytenoids to the epiglottic base. Anterior hyoid excursion was partially reduced. Epiglottic deflection was also reduced as inversion did not progress past the horizontal position. Laryngeal vestibular closure was incomplete as evidenced by a narrow column of contrast being located in the vestibule at the height of the swallow. The pharyngeal stripping wave was present yet diminished. Pharyngeal contraction revealed unilateral (L) bulging. There was partial distention and partial duration of the opening to the pharyngoesophageal segment (PES). Tongue base retraction was reduced, with a narrow column of contrast located between the tongue base and pharyngeal wall during the swallow. There was retention located along the tongue base, in the valleculae, and in the pyriforms after the swallow. The patient presented with laryngeal penetration and inconsistent silent aspiration of thin liquids when taken via cup (aspirated on the second trial) and straw. Laryngeal penetration without aspiration was evidenced with nectar thick liquids via cup. A chin tuck was attempted in order to improve airway protection, but was not effective as the patient demonstrated increased difficulty with pharyngeal contraction and bolus propulsion through the pharynx. Aspiration is being attributed to delayed swallow reflex along with generalized reduced pharyngeal strength and ROM. Retention increased as viscosity increased, and the patient required ~ 3 swallows per bolus to clear. At times she required more again based upon viscosity. Reduced anterior hyoid excursion and reduced PES opening resulted in increased retention in the pyriforms. If unable to clear with multiple swallows, the patient would cough out the retention and expectorate it. Esophageal stage: There was esophageal retention located in the mid esophagus with retrograde flow inconsistently through the PES. In the lateral view, a noted prominent cricopharyngeus along with cervical osteophytes impacted bolus flow through the esophagus. SUMMARY/RECOMMENDATIONS: This patient presents with moderate ashley-pharyngeal dysphagia. She also has s/s of esophageal dysfunction. The following is recommended: 1. Initiate trials of moist pureed solids of low viscosity and nectar thick liquids. 2. Aspiration and GERD (reflux) precautions. Fully upright while eating and 30 minutes after meals. Head of the bed should be elevated to 30 degrees at all times to include while asleep. 3. Stringent oral care to include brushing all surfaces of the mouth and tongue with toothbrush and toothpaste prior to and after meals, as well as before bed. This will reduced the risk of aspiration of oral bacteria in saliva. 4. Continue with speech therapy for dysphagia (along with dysarthria and aphasia therapy) at acute rehab. Would benefit from continued VitalStim therapy in conjunction with therapeutic trials of p.o. solids. General pharyngeal strengthening exercises should also be incorporated into VitalStim treatment as tolerated. Safe swallow strategies: Avoid foods that are dry or pasty. Rest breaks while eating (at risk for quickly fatiguing with trials), and alternate solids and liquids as needed. 5. Advance diet to mechanical soft solids (slippery) should the patient be able to tolerate solid pureed foods trials. Would also benefit from a repeat video swallow study as indicated per progress for further advancement of liquids due to silent aspiration. A summary of the results and recommendations was discussed with the patient immediately following the study with verbal understanding. A summary of the results and recommendations was provided to the patient on a consultation record as provided by the facility to the patient as well. Thank you for referral of this patient. Please contact me at if any additional information is needed.
== END | disposition home or self-care (01) ==
LOC: C.RAD 10:54
PROVIDERS: ATTEND Physical Medicine & Rehabilitation
DX: J69.0 Pneumonitis due to inhalation of food and vomit (principal)

== ENCOUNTER 2016-10-18 19:42 | Emergency (ER) | payer BC ==
[~2016-10-18] VITALS: Ht 157.5 cm; Wt 59.5 kg
[~2016-10-18 19:42] MED LIST changes: -ACET-1256 PO; -ASPI81TA28 GT; -ATOR-22 GT; -BISA10SU7 RE; -DOCUSATE LIQUID GT; -LIDOCAINE 2% TOP; -MOML GT; -RBN1 GT; -SENN-61 GT; -SODIENE PR; -WARF4TAB8 GT
[2016-10-18] MEDS ORDERED: VECURONIUM BROMIDE 10 MG VIAL IV ONE (19:44)
[2016-10-18] MEDS ORDERED: SODIUM CHLORIDE 0.9% 10ML FLUSH IV ONE (19:44)
[2016-10-18 19:51] VITALS: TEMP 36.7; Ht 157.5 cm; Wt 59.5 kg
[2016-10-18 20:34] LABS: BASO % 0.3 %; BASO ABS # 0.04 K/uL (0-0.2); COMPLETE YES; HEMATOCRIT 40.5 % (37-47); IG% 0.5 %; LYMPH % 22.8 %; LYMPH ABS # 2.91 K/uL (1.2-3.4); MEAN CELL VOLUME 84.4 fL (80-100); MEAN CORPUSCULAR HEMOGLOBIN 27.5 pg (25-34); MEAN CORPUSCULAR HGB CONC 32.6 g/dl (32-36); MEAN PLATELET VOLUME 10.4 fL (7.4-10.4); NEUT % 69.4 %; PLATELET COUNT 473 K/uL (130-400); WHITE BLOOD COUNT 12.77 K/uL (4.8-10.8)
[2016-10-18] MEDS ORDERED: ETOMIDATE 2 MG/ML 20 ML VIAL IV STA (20:36)
[2016-10-18] MEDS ORDERED: SUCCINYLCHOLINE CHLORIDE 20 MG/ML 10 ML VIAL IV STA (20:36)
[2016-10-18] MEDS ORDERED: WARF4TAB8 GT (20:44)
[2016-10-18] MEDS ORDERED: RAPID SEQUENCE INDUCTION BAG ONE (20:46)
[2016-10-18] MEDS ORDERED: VECURONIUM BROMIDE 10 MG VIAL IV STA (20:47)
[2016-10-18] MEDS ORDERED: PROPOFOL IV EMULSION 10 MG/ML 100 ML VIAL IV STA (20:47)
[2016-10-18] MEDS ORDERED: MANNITOL 25% 50 ML VIAL IV STA ×2 (20:47→20:55)
--- NOTE | 2016-10-18 20:50 | DIAGNOSTIC IMAGING REPORT ---
HEAD WITHOUT CONTRAST (CT) CLINICAL HISTORY: 89 years-old Female with acute altered mental status status post fall. TECHNIQUE: Multiple axial CT images of the head were obtained without contrast. A dose lowering technique was utilized adhering to the principles of ALARA. CT DOSE: 638.56 mGycm COMPARISON: CTA of the head 09/25/2016. FINDINGS: There is a large acute right-sided subdural hematoma measuring up to 1.4 cm transversely causing significant mass effect upon the right cerebral hemisphere resulting in 2.1 cm of leftward midline shift and adjacent sulcal effacement. Subdural hemorrhage is also seen layering along the falx cerebri. Additionally, there is significant amount of subarachnoid hemorrhage involving the bilateral cerebral hemispheres, notably the frontal parietal lobes and the left sylvian fissure. There is a moderate-sized intraparenchymal hematoma of the right frontal lobe, 1.5 x 1.2 cm with surrounding vasogenic edema. There is effacement of the suprasellar cistern as well as effacement of the atria right lateral ventricle. The quadrigeminal plate cistern is partially effaced. The cerebellar tonsils extend to the level of the foramen magnum which appears unchanged from 09/25/2016. There is background moderate cerebral atrophy. No calvarial fracture is identified. No large scalp hematoma. IMPRESSION: 1. Large acute right-sided subdural hematoma causes associated adjacent sulcal effacement, right lateral ventricular atrial effacement and subfalcine herniation with 2.1 cm of leftward midline shift. Additionally, there is effacement of the suprasellar cistern compatible with uncal herniation. 2. 1.5 cm intraparenchymal hematoma of the right frontal lobe. 3. Bilateral hemispheric extensive subarachnoid hemorrhage. Findings were discussed with Dr. Vences on 10/18/2016 at 8:42 PM The above report was generated using voice recognition software. It may contain grammatical, syntax or spelling errors. Electronically signed by: Rodney Perez M.D. 10/18/2016 8:48 PM Dictated Date/Time: 10/18/2016 8:40 PM
[2016-10-18] MEDS ORDERED: NiCARDipine IV 25 MG in SODIUM CHLORIDE 0.9% 250ML 240 ML IV STA (20:54)
[2016-10-18] MEDS ORDERED: BISA10SU7 RE (20:56)
[2016-10-18] MEDS ORDERED: LIDOCAINE 2% TOP (20:56)
[2016-10-18] MEDS ORDERED: SENN-61 GT (20:56)
[2016-10-18] MEDS ORDERED: DOCUSATE LIQUID GT (20:56)
[2016-10-18] MEDS ORDERED: SODIENE PR (20:56)
[2016-10-18] MEDS ORDERED: RBN1 GT (20:56)
[2016-10-18] MEDS ORDERED: ACET-1256 PO (20:56)
[2016-10-18] MEDS ORDERED: MOML GT (20:56)
[2016-10-18] MEDS ORDERED: ATOR-22 GT (20:56)
--- NOTE | 2016-10-18 20:58 | DIAGNOSTIC IMAGING REPORT ---
FACIAL BONES-MXILLOFAC WITHOUT CLINICAL HISTORY: 89 years-old Female presenting with Pt c/o AMS. Acute fall. Large intraparenchymal hematoma noted on comparison head CT. COMPARISON STUDY: CT head of same day TECHNIQUE: High-resolution CT scan of the facial bones is performed. Images are reviewed in the axial, sagittal, and coronal planes. IV contrast was not administered for this examination. A dose lowering technique was utilized adhering to the principles of ALARA. CT DOSE: 486.22 mGycm FINDINGS: Large right hemispheric subdural hematoma is noted with associated subarachnoid hemorrhage, better evaluated on comparison head CT of same day. No calvarial fracture is identified. Segmented arches, maxillary stover, medial orbital stover, pterygoid plates and imaged cervical spine. Intact. Advanced degenerative changes involve the temporomandibular joints bilaterally. Mandible appears intact as well. Mild maxillary and ethmoid sinus disease is present. There are multiple large periapical cysts in the maxillary teeth. Intervertebral disc space narrowing noted at C4-C5. No orbital fracture. Soft tissues of the face and neck are within normal limits with exception of mild right periorbital soft tissue hematoma, 3.4 x 0.9 cm. Negative for opaque foreign body. IMPRESSION: 1. Moderate periorbital soft tissue swelling with 3.4 cm hematoma. No facial bone fracture is identified. 2. Redemonstration of large right-sided subdural hematoma and subarachnoid hemorrhage, better evaluated on comparison head CT. The above report was generated using voice recognition software. It may contain grammatical, syntax or spelling errors. Electronically signed by: Rodney Perez M.D. 10/18/2016 8:57 PM Dictated Date/Time: 10/18/2016 8:53 PM
--- NOTE | 2016-10-18 21:04 | DIAGNOSTIC IMAGING REPORT ---
CERVICAL SPINE W/O CT DOSE: 465.29 mGycm CLINICAL HISTORY: 89 years-old Female with Pt c/o head injury. Acute altered mental status after fall. Large intraparenchymal hemorrhage. TECHNIQUE: Multiple axial CT images of the cervical spine were obtained without contrast. A dose lowering technique was utilized adhering to the principles of ALARA. COMPARISON: Head CT of same day. FINDINGS: The odontoid process and lateral pillars of C1 are intact. Occipital cervical articulations anatomic. No acute fracture or dislocation is identified. The posterior elements also appear to be intact. There is reversal of the normal cervical lordosis centered at C4-C5. 2 mm anterolisthesis of C2 on C3 and 3 mm anterolisthesis C3 on C4 is likely degenerative as there is associated severe facet arthrosis at these levels. Advanced intervertebral disc space narrowing is seen at C5-C6 and C6-C7. Large posterior disc osteophyte complex is noted at the C5-C6 level which causes moderate central canal, moderate to severe left lateral recess and at least moderate by foraminal narrowing. There is no prevertebral soft tissue swelling. Mild intralobular septal thickening involves the lung apices. There is a calcified granuloma apical segment right upper lobe. Mild secretions are seen layering within the thoracic trachea. IMPRESSION: 1. No acute cervical spine fracture or dislocation. 2. 2 mm anterolisthesis of C2 on C3 and 3 mm anterolisthesis C3 on C4 is likely degenerative as there is associated severe facet arthrosis at these levels. 3. Advanced intervertebral disc space narrowing is seen at C5-C6 and C6-C7. The above report was generated using voice recognition software. It may contain grammatical, syntax or spelling errors. Electronically signed by: Rodney Perez M.D. 10/18/2016 9:02 PM Dictated Date/Time: 10/18/2016 8:57 PM
[2016-10-18 21:05] VITALS: O2SAT 92
[2016-10-18 21:06] LABS: ALKALINE PHOSPHATASE 69 U/L (45-117); ALT/SGPT 23 U/L (12-78); BLOOD UREA NITROGEN 33 mg/dl (7-18); BUN/CREATININE RATIO 38.7 (10-20); CALCIUM 9.4 mg/dl (8.5-10.1); CARBON DIOXIDE 29 mmol/L (21-32); CHLORIDE 99 mmol/L (98-107); CREATININE 0.86 mg/dl (0.60-1.20); GLUCOSE 120 mg/dl (70-99); SODIUM 138 mmol/L (136-145)
[2016-10-18] MEDS: 0.2 MICRON FILTER SET 1 EA IV SCH ×4 (21:15→22:32)
[2016-10-18 21:28] LABS: INR 2.5 (0.9-1.1); PARTIAL THROMBOPLASTIN RATIO 1.4; PROTHROMBIN TIME (PATIENT) 27.9 SECONDS (9.0-12.0)
[2016-10-18] MEDS ORDERED: ASPI81TA28 GT (21:33)
--- NOTE | 2016-10-18 21:41 | EMERGENCY ROOM VISIT NOTE ---
History Report prepared by Debraibjoey: Lcaey Rowell Under the Supervision of: Dr. Rigoberto Vences M.D. First contact with patient: 20:18 Chief Complaint: FALL Stated Complaint: FALL, LACERATION TO R EYE History of Present Illness The patient is a 89 year old female who presents to the Emergency Room with complaints of a fall occurring today. The patient was recently evaluated at [facility] for a possible CVA. She was discharged to [facility]. Tonight, she was found on the floor. The patient was not responsive. HPI is limited secondary to unresponsiveness. Additional history is obtained as per . Source of History: spouse/significant other History Limited By: other (unresponsive) Onset: today Position: other (global) Quality: other (fall) Review of Systems ROS is limited secondary to unresponsiveness. 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 Social History Smoking Status: Never Smoker Alcohol Use: occasionally Marital Status: Housing Status: lives with significant other Current/Historical Medications Scheduled Aspirin (Aspirin Ec), 81 MG GT DAILY Atorvastatin (Lipitor), 20 MG GT Q2D Glycopyrrolate (Glycopyrrolate), 1 TAB GT DAILY Warfarin Sod (Jantoven), 4 MG GT PO [Docusate Liquid], 100 MG GT BID [Lidocaine 2%Gel], 1 APPLN TOP PRN Scheduled PRN Acetaminophen (Tylenol), 500 MG PO Q4 PRN for Pain or Fever Bisacodyl (Bisac-Evac), 10 MG RE DAILY PRN for Constipation Magnesium Hydroxide (Milk Of Magnesia), 30 ML GT DAILY PRN for Constipation Senna (Senokot), 2 TABS GT QLUNCH PRN for Constipation Sodium Phosphate/Biphosphate (Fleet Enema), 1 EA FL DAILY PRN for Constipation Allergies Coded Allergies: Simvastatin (Verified Allergy, Mild, RASH, 01/03/11) Physical Exam Vital Signs Date Time Temp Pulse Resp B/P (MAP) Pulse Ox O2 Delivery O2 Flow Rate FiO2 10/18/16 23:16 111 13 130/80 97 10/18/16 23:11 105 14 139/75 99 10/18/16 23:06 95 14 137/80 98 10/18/16 23:01 104 14 135/81 99 10/18/16 22:56 98 14 145/87 98 10/18/16 22:53 135/86 10/18/16 22:51 82 14 125/71 99 10/18/16 22:46 101 13 124/74 99 10/18/16 22:41 76 13 120/75 10/18/16 22:36 126/73 10/18/16 22:32 80 16 99 10/18/16 22:31 118/75 10/18/16 22:27 83 15 99 10/18/16 22:26 121/76 10/18/16 22:22 82 12 99 10/18/16 22:21 122/82 10/18/16 22:17 85 12 99 10/18/16 22:16 134/68 10/18/16 22:12 76 12 100 10/18/16 22:11 135/73 10/18/16 22:07 82 12 99 10/18/16 22:06 127/84 10/18/16 22:02 105 12 10/18/16 22:01 144/88 10/18/16 21:57 95 12 100 10/18/16 21:56 145/83 10/18/16 21:52 93 12 100 10/18/16 21:47 100 12 100 10/18/16 21:46 149/91 10/18/16 21:42 106 12 100 10/18/16 21:41 160/96 10/18/16 21:37 97 12 100 10/18/16 21:36 150/91 10/18/16 21:32 105 12 100 10/18/16 21:31 154/80 10/18/16 21:30 181/98 10/18/16 21:27 101 14 100 10/18/16 21:26 100 10/18/16 21:26 181/98 10/18/16 21:22 108 13 169/116 100 10/18/16 21:21 194/114 10/18/16 21:18 177/118 10/18/16 21:17 127 12 100 10/18/16 21:16 175/119 10/18/16 21:12 121 90 10/18/16 21:07 126 95 10/18/16 21:05 92 Room Air 10/18/16 21:02 145 90 10/18/16 21:01 212/138 10/18/16 20:57 108 94 10/18/16 20:52 93 92 10/18/16 20:47 114 90 10/18/16 20:46 108 10/18/16 20:46 199/107 10/18/16 20:22 123 20 10/18/16 19:51 36.7 115 18 181/102 94 Room Air Physical Exam GENERAL: Patient is obtunded, only moves her right leg. HEAD: Normocephalic atraumatic EYES: Ocular movements intact pupils equal and react to light OROPHARYNX mucous membranes are moist no exudates present no erythema or edema present NECK: Supple no nuchal rigidity CHEST: Good equal expansion LUNGS: Patient has agonal respirations CARDIAC: Normal S1 and S2 ABDOMEN: Soft nontender no guarding BACK: No CVA tenderness EXTREMITIES: No pain upon palpation normal muscle strength in all groups no clubbing cyanosis or edema NEURO: Patient is does not answer questions, does not respond to painful stimuli , only withdraws right leg. Medical Decision & Procedures ER Provider Diagnostic Interpretation: CT results as stated below per my review and radiologist interpretation: FACIAL BONES-MXILLOFAC WITHOUT CLINICAL HISTORY: 89 years-old Female presenting with Pt c/o AMS. Acute fall. Large intraparenchymal hematoma noted on comparison head CT. COMPARISON STUDY: CT head of same day TECHNIQUE: High-resolution CT scan of the facial bones is performed. Images are reviewed in the axial, sagittal, and coronal planes. IV contrast was not administered for this examination. A dose lowering technique was utilized adhering to the principles of ALARA. CT DOSE: 486.22 mGycm FINDINGS: Large right hemispheric subdural hematoma is noted with associated subarachnoid hemorrhage, better evaluated on comparison head CT of same day. No calvarial fracture is identified. Segmented arches, maxillary stover, medial orbital stover, pterygoid plates and imaged cervical spine. Intact. Advanced degenerative changes involve the temporomandibular joints bilaterally. Mandible appears intact as well. Mild maxillary and ethmoid sinus disease is present. There are multiple large periapical cysts in the maxillary teeth. Intervertebral disc space narrowing noted at C4-C5. No orbital fracture. Soft tissues of the face and neck are within normal limits with exception of mild right periorbital soft tissue hematoma, 3.4 x 0.9 cm. Negative for opaque foreign body. IMPRESSION: 1. Moderate periorbital soft tissue swelling with 3.4 cm hematoma. No facial bone fracture is identified. 2. Redemonstration of large right-sided subdural hematoma and subarachnoid hemorrhage, better evaluated on comparison head CT. The above report was generated using voice recognition software. It may contain grammatical, syntax or spelling errors. Electronically signed by: Rodney Perez M.D. 10/18/2016 8:57 PM Dictated Date/Time: 10/18/2016 8:53 PM HEAD WITHOUT CONTRAST (CT) CLINICAL HISTORY: 89 years-old Female with acute altered mental status status post fall. TECHNIQUE: Multiple axial CT images of the head were obtained without contrast. A dose lowering technique was utilized adhering to the principles of ALARA. CT DOSE: 638.56 mGycm COMPARISON: CTA of the head 09/25/2016. FINDINGS: There is a large acute right-sided subdural hematoma measuring up to 1.4 cm transversely causing significant mass effect upon the right cerebral hemisphere resulting in 2.1 cm of leftward midline shift and adjacent sulcal effacement. Subdural hemorrhage is also seen layering along the falx cerebri. Additionally, there is significant amount of subarachnoid hemorrhage involving the bilateral cerebral hemispheres, notably the frontal parietal lobes and the left sylvian fissure. There is a moderate-sized intraparenchymal hematoma of the right frontal lobe, 1.5 x 1.2 cm with surrounding vasogenic edema. There is effacement of the suprasellar cistern as well as effacement of the atria right lateral ventricle. The quadrigeminal plate cistern is partially effaced. The cerebellar tonsils extend to the level of the foramen magnum which appears unchanged from 09/25/2016. There is background moderate cerebral atrophy. No calvarial fracture is identified. No large scalp hematoma. IMPRESSION: 1. Large acute right-sided subdural hematoma causes associated adjacent sulcal effacement, right lateral ventricular atrial effacement and subfalcine herniation with 2.1 cm of leftward midline shift. Additionally, there is effacement of the suprasellar cistern compatible with uncal herniation. 2. 1.5 cm intraparenchymal hematoma of the right frontal lobe. 3. Bilateral hemispheric extensive subarachnoid hemorrhage. Findings were discussed with Dr. Vences on 10/18/2016 at 8:42 PM The above report was generated using voice recognition software. It may contain grammatical, syntax or spelling errors. Electronically signed by: Rodney Perez M.D. 10/18/2016 8:48 PM Dictated Date/Time: 10/18/2016 8:40 PM CERVICAL SPINE W/O CT DOSE: 465.29 mGycm CLINICAL HISTORY: 89 years-old Female with Pt c/o head injury. Acute altered mental status after fall. Large intraparenchymal hemorrhage. TECHNIQUE: Multiple axial CT images of the cervical spine were obtained without contrast. A dose lowering technique was utilized adhering to the principles of ALARA. COMPARISON: Head CT of same day. FINDINGS: The odontoid process and lateral pillars of C1 are intact. Occipital cervical articulations anatomic. No acute fracture or dislocation is identified. The posterior elements also appear to be intact. There is reversal of the normal cervical lordosis centered at C4-C5. 2 mm anterolisthesis of C2 on C3 and 3 mm anterolisthesis C3 on C4 is likely degenerative as there is associated severe facet arthrosis at these levels. Advanced intervertebral disc space narrowing is seen at C5-C6 and C6-C7. Large posterior disc osteophyte complex is noted at the C5-C6 level which causes moderate central canal, moderate to severe left lateral recess and at least moderate by foraminal narrowing. There is no prevertebral soft tissue swelling. Mild intralobular septal thickening involves the lung apices. There is a calcified granuloma apical segment right upper lobe. Mild secretions are seen layering within the thoracic trachea. IMPRESSION: 1. No acute cervical spine fracture or dislocation. 2. 2 mm anterolisthesis of C2 on C3 and 3 mm anterolisthesis C3 on C4 is likely degenerative as there is associated severe facet arthrosis at these levels. 3. Advanced intervertebral disc space narrowing is seen at C5-C6 and C6-C7. The above report was generated using voice recognition software. It may contain grammatical, syntax or spelling errors. Electronically signed by: Rodney Perez M.D. 10/18/2016 9:02 PM Dictated Date/Time: 10/18/2016 8:57 PM X-ray results as stated below per interpretation by me and the radiologist: CHEST ONE VIEW PORTABLE HISTORY: 89 years-old Female Pt c/o AMS acute respiratory failure COMPARISON: Chest radiograph 09/25/2016 TECHNIQUE: Portable supine AP view of the chest FINDINGS: Endotracheal tube terminates 5.0 cm superior to the level the whitney. Cardiac silhouette is within normal limits. Prior median sternotomy with surgical clips projecting over the mediastinum. There is atherosclerosis of the aorta. There is no pneumothorax or pleural effusion. Coarse reticular opacities are again seen within the lungs bilaterally with left basilar scarring or atelectasis and a subsegmental distribution. There is improved aeration of the lungs from comparison study without overt pulmonary edema. Calcific tendinosis involves the bilateral rotator cuff. Upper abdominal structures are within normal limits. IMPRESSION: 1. Endotracheal tube terminates well above the level of the whitney. 2. There is improved aeration of the lungs from comparison study with chronic background reticular opacities and left basilar atelectasis. The above report was generated using voice recognition software. It may contain grammatical, syntax or spelling errors. Electronically signed by: Rodney Perez M.D. 10/18/2016 10:11 PM Dictated Date/Time: 10/18/2016 10:09 PM Laboratory Results 10/18/16 19:31 Red Blood Count 4.80, Mean Corpuscular Volume 84.4, Mean Corpuscular Hemoglobin 27.5, Mean Corpuscular Hemoglobin Concent 32.6, Mean Platelet Volume 10.4, Neutrophils (%) (Auto) 69.4, Lymphocytes (%) (Auto) 22.8, Monocytes (%) (Auto) 5.0, Eosinophils (%) (Auto) 2.0, Basophils (%) (Auto) 0.3, Neutrophils # (Auto) 8.87, Lymphocytes # (Auto) 2.91, Monocytes # (Auto) 0.64, Eosinophils # (Auto) 0.25, Basophils # (Auto) 0.04 10/18/16 19:31 10/18/16 21:07 Test 10/18/16 19:31 10/18/16 21:07 10/18/16 21:30 White Blood Count 12.77 K/uL (4.8-10.8) Red Blood Count 4.80 M/uL (4.2-5.4) Hemoglobin 13.2 g/dL (12.0-16.0) Hematocrit 40.5 % (37-47) Mean Corpuscular Volume 84.4 fL (80-100) Mean Corpuscular Hemoglobin 27.5 pg (25-34) Mean Corpuscular Hemoglobin Concent 32.6 g/dl (32-36) Platelet Count 473 K/uL (130-400) Mean Platelet Volume 10.4 fL (7.4-10.4) Neutrophils (%) (Auto) 69.4 % Lymphocytes (%) (Auto) 22.8 % Monocytes (%) (Auto) 5.0 % Eosinophils (%) (Auto) 2.0 % Basophils (%) (Auto) 0.3 % Neutrophils # (Auto) 8.87 K/uL (1.4-6.5) Lymphocytes # (Auto) 2.91 K/uL (1.2-3.4) Monocytes # (Auto) 0.64 K/uL (0.11-0.59) Eosinophils # (Auto) 0.25 K/uL (0-0.5) Basophils # (Auto) 0.04 K/uL (0-0.2) RDW Standard Deviation 42.3 fL (36.4-46.3) RDW Coefficient of Variation 13.7 % (11.5-14.5) Immature Granulocyte % (Auto) 0.5 % Immature Granulocyte # (Auto) 0.06 K/uL (0.00-0.02) Anion Gap 10.0 mmol/L (3-11) Est Creatinine Clear Calc Drug Dose 35.1 ml/min Estimated GFR () 69.4 Estimated GFR (Non- 59.9 BUN/Creatinine Ratio 38.7 (10-20) Calcium Level 9.4 mg/dl (8.5-10.1) Total Bilirubin 0.2 mg/dl (0.2-1) Alanine Aminotransferase (ALT/SGPT) 23 U/L (12-78) Alkaline Phosphatase 69 U/L (45-117) Total Protein 7.2 gm/dl (6.4-8.2) Albumin 3.0 gm/dl (3.4-5.0) Prothrombin Time 27.9 SECONDS (9.0-12.0) Prothromb Time International Ratio 2.5 (0.9-1.1) Activated Partial Thromboplast Time 37.2 SECONDS (21.0-31.0) Partial Thromboplastin Ratio 1.4 Direct Bilirubin mg/dl (0-0.2) Aspartate Amino Transf (AST/SGOT) 24 U/L (15-37) Chemistry Specimen Hemolysis Urine Color YELLOW Urine Appearance TURBID (CLEAR) Urine pH >= 9.0 (4.5-7.5) Urine Specific [place] 1.014 (1.000-1.030) Urine Protein NEG (NEG) Urine Glucose (UA) NEG (NEG) Urine Ketones NEG (NEG) Urine Occult Blood 3+ (NEG) Urine Nitrite NEG (NEG) Urine Bilirubin NEG (NEG) Urine Urobilinogen NEG (NEG) Urine Leukocyte Esterase LARGE (NEG) Urine WBC (Auto) >30 /hpf (0-5) Urine RBC (Auto) 0-4 /hpf (0-4) Urine Hyaline Casts (Auto) /lpf (0-5) Urine Epithelial Cells (Auto) 10-20 /lpf (0-5) Urine Bacteria (Auto) 3+ (NEG) Urine Renal Epithelial Cells /lpf (0-5) Urine Crystals TRIPLE PHOSPHATE Urine Pathogenic Casts /lpf (0) Labs reviewed by ED physician. Medications Administered Medications (Trade) Dose Ordered Sig/Francois Route Start Time Stop Time Status Last Admin Dose Admin Succinylcholine Chloride (Quelicin Inj) 150 mg NOW STAT IV 10/18/16 20:36 10/18/16 20:38 DC 10/18/16 21:01 150 MG Etomidate (Amidate Inj) 20 mg NOW STAT IV 10/18/16 20:36 10/18/16 20:38 DC 10/18/16 21:01 20 MG Propofol (Diprivan Iv Emulsion 100ml Vial) 1 dose UD STAT IV 10/18/16 20:47 10/18/16 20:50 DC 10/18/16 20:47 1 DOSE Vecuronium Higgins (Vecuronium Higgins Inj) 10 mg NOW STAT IV 10/18/16 20:47 10/18/16 20:50 DC 10/18/16 20:47 10 MG Nicardipine HCl 25 mg/Sodium Chloride 250 ml @ 0 mls/hr Q0M STAT IV 10/18/16 20:54 10/18/16 20:55 DC 10/18/16 21:18 50 MLS/HR Mannitol 60 gm/ Empty Bag 240 ml @ 480 mls/hr TODAY@2130 IV 10/18/16 21:30 10/18/16 22:05 DC 10/18/16 21:39 480 MLS/HR Mannitol 30 gm/ Empty Bag 120 ml @ 480 mls/hr NOW ONCE IV 10/18/16 22:15 10/18/16 22:29 DC 10/18/16 22:15 480 MLS/HR Phytonadione 10 mg/Sodium Chloride 51 ml @ 102 mls/hr ONE STAT IV 10/18/16 22:32 10/18/16 23:01 DC 10/18/16 22:51 102 MLS/HR Prothrombin Complex Concent (Human) 1500 unit/ Syringe 60 ml @ 10 mls/min NOW STAT IV 10/18/16 22:33 10/18/16 22:39 DC 10/18/16 22:33 10 MLS/MIN Procedure Endotracheal Intubation Indication altered mental status. The patient was on 100% oxygen via NRB prior to the procedure. Suction, airway equipment, RSI drugs, respiratory equipment, and appropriate personnel were prepared prior to the initiation of the procedure. A time out was taken. Induction was performed with Etomidate and Succinylcholine. After observing the clinical benefit of the medications, the airway was easily visualized utilizing a GlideScope. A 7.5 size ETT tube was placed atraumatically to 24 cm at the lip using standard technique. The cuff inflated without signs of malfunction. There were bilateral breath sounds, positive colormetric change, no gastric sounds, a good capnography waveform, and post procedure pulse oximetry was 100%. Post intubation sedation was administered using Propofol. There were no complications. ED Course 2018: Past medical records reviewed. The patient was evaluated in room C08. A complete history and physical examination was performed. 2032: I discussed the patient's case at-length with her . I updated him on radiology findings. He does not want her to be a DNR and wants us to perform all the necessary procedures. 2035: Etomidate 20 mg IV, Quelicin Inj 150 mg IV 2046: Vecuronium Higgins 10 mg IV, Propofol 1 dose IV 2050: [facility] does not have any beds available. 2053: Nicardipine HCl 25 mg/Sodium Chloride 250 ml @ 0 mls/hr Protocol 0 mg/hr IV. I discussed the patient's case with Dr. Ruelas, neurosurgeon with [facility]. He will accept the patient. The patient will be transferred. 2100: I performed endotracheal intubation. Refer to procedure note for further details. 2129: Mannitol 60 gm/Empty Bag 240 ml @ 480 mls/hr IV 2214: Mannitol 30 gm/Empty Bag 120 ml @ 480 mls/hr Protocol IV 2231: Phytonadione 10 mg/Sodium Chloride 51 ml @ 102 mls/hr Protocol IV 2233: Prothrombin Complex Concent (Human) 1500 unit//Syringe 60 ml @ 10 mls/min IV 2300: Promethrombin Complex Concent (Human) 1500 unit/Springe 60 ml @ 10 mls/ min IV Medical Decision Differential diagnosis: Etiologies such as metabolic, infection, hypo/hyperglycemia, electrolyte abnormalities, cardiac sources, intracerebral event, toxicologic, neurologic, as well as others were entertained. This is an 89-year-old female who presents emergency department combative. Upon my arrival to the room the patient is unresponsive and is not moving her right arm. She withdraws her right leg from pain. Based on these findings the patient was immediately sent to CAT scan which was concerning for an acute head bleed. The patient is on Coumadin therefore she was given case and try along with vitamin K. I had a lengthy talk with the patient's , and I noted that the patient probably would not survive this insult. The asked that I make the patient for a code and do everything I can to save her life. At this point the patient was intubated as she had agonal respirations. The patient's is asking that the patient be sent to [facility] however [facility] is full. For this reason I did discuss the case with the neurosurgeon on-call at [facility] who readily accepted the patient. The patient was given a nicardipine drip to better control her blood pressure. She was intubated as above. Chest x-ray was performed as above. A Olguin catheter was placed and the patient was given mannitol. I also did discuss the patient's poor prognosis with the patient's daughter who agreed with the current treatment plan. The patient was transferred [facility]. Head Trauma GCS Score: 5 Medication Reconcilliation Current Medication List: was personally reviewed by me Consults Time Called: 2049 Consulting Physician: Dr. Ruelas, neurosurgeon with [facility] Returned Call: 2053 I discussed the patient's case with Dr. Ruelas neurosurgeon with [facility]. He will accept the patient. The patient will be transferred. Impression Primary Impression: Intracranial hemorrhage Critical Care I have personally spent greater than 180 minutes of critical care time in the direct management of this patient. This includes bedside care, interpretation of diagnostic studies, and testing, discussion with consultants, patient, and family members, and other required patient management activities. This 180 minutes is in excess of all separately billable procedures. Scribe Attestation The scribe's documentation has been prepared under my direction and personally reviewed by me in its entirety. I confirm that the note above accurately reflects all work, treatment, procedures, and medical decision making performed by me. Departure Information Dispostion Transfer Acute Care Facility Referrals Nba Forbes M.D. (PCP) Patient Instructions [facility]
[2016-10-18 21:50] LABS: URINE APPEARANCE TURBID (CLEAR); URINE BILIRUBIN NEG (NEG); URINE COLOR YELLOW; URINE NITRITE NEG (NEG); URINE PH >= 9.0 (4.5-7.5); URINE SPECIFIC GRAVITY 1.014 (1.000-1.030); UROBILINOGEN NEG (NEG)
[2016-10-18 22:00] LABS: MANUAL MICROSCOPIC REQUIRED? NO; REVIEW REQ? YES
[2016-10-18 22:08] LABS: SULFASALICYLIC ACID NEG (NEG)
[2016-10-18 22:09] LABS: AST/SGOT 24 U/L (15-37); POTASSIUM 4.7 mmol/L (3.5-5.1)
--- NOTE | 2016-10-18 22:12 | DIAGNOSTIC IMAGING REPORT ---
CHEST ONE VIEW PORTABLE HISTORY: 89 years-old Female Pt c/o AMS acute respiratory failure COMPARISON: Chest radiograph 09/25/2016 TECHNIQUE: Portable supine AP view of the chest FINDINGS: Endotracheal tube terminates 5.0 cm superior to the level the whitney. Cardiac silhouette is within normal limits. Prior median sternotomy with surgical clips projecting over the mediastinum. There is atherosclerosis of the aorta. There is no pneumothorax or pleural effusion. Coarse reticular opacities are again seen within the lungs bilaterally with left basilar scarring or atelectasis and a subsegmental distribution. There is improved aeration of the lungs from comparison study without overt pulmonary edema. Calcific tendinosis involves the bilateral rotator cuff. Upper abdominal structures are within normal limits. IMPRESSION: 1. Endotracheal tube terminates well above the level of the whitney. 2. There is improved aeration of the lungs from comparison study with chronic background reticular opacities and left basilar atelectasis. The above report was generated using voice recognition software. It may contain grammatical, syntax or spelling errors. Electronically signed by: Rodney Perez M.D. 10/18/2016 10:11 PM Dictated Date/Time: 10/18/2016 10:09 PM
[2016-10-18] MEDS ORDERED: PHYTONADIONE INJ 10 MG in SODIUM CHLORIDE 0.9% 50ML 50 ML IV STA (22:32)
[2016-10-18] MEDS ORDERED: PROTHROMBIN COMP CONC- KCENTRA 1,500 UNIT in SYRINGE 0 ML IV STA (22:33)
[2016-10-18] MEDS ORDERED: PROTHROMBIN COMP CONC- KCENTRA 1,500 UNIT in SYRINGE 0 ML IV ONE (23:00)
[2016-10-18 23:16] VITALS: BP 130/80; PULSE 111; O2SAT 97
== END 2016-10-19 00:23 | disposition short-term general hospital (02) ==
LOC: EDBD 19:42 → C.EDC 19:43 → C.EDB 10-19 00:23
DX: I62.9 Nontraumatic intracranial hemorrhage, unspecified (principal); I48.91 Unspecified atrial fibrillation; I48.92 Unspecified atrial flutter; E78.00 Pure hypercholesterolemia, unspecified; Z95.1 Presence of aortocoronary bypass graft; Z98.49 Cataract extraction status, unspecified eye; Z96.642 Presence of left artificial hip joint; Z79.82 Long term (current) use of aspirin; Z79.01 Long term (current) use of anticoagulants; Z79.899 Other long term (current) drug therapy; Z88.8 Allergy status to other drugs, medicaments and biological substances